=== PATIENT | female | born 1945 | race Caucasian/White ===

== ENCOUNTER 2023-11-23 15:35 | Emergency (ER) | payer OTHER ==
[~2023-11-23] VITALS: Ht 154.9 cm; Wt 50.8 kg
== END 2023-11-23 18:02 | disposition left against medical advice (07) ==
LOC: ED 15:35
DX: Z04.6 Encounter for general psychiatric examination, requested by authority (principal); F41.9 Anxiety disorder, unspecified; F32.A Depression, unspecified; Z98.890 Other specified postprocedural states; Z53.21 Procedure and treatment not carried out due to patient leaving prior to being seen by health care provider